=== PATIENT | female | born 1990 | race Two or more races ===

== ENCOUNTER 2022-03-07 08:48 | Emergency (ER) | payer OTHER ==
[~2022-03-07] VITALS: Ht 177.8 cm; Wt 68.0 kg
== END 2022-03-07 09:15 | disposition home or self-care (01) ==
LOC: ER 09:10
DX: K04.7 Periapical abscess without sinus (principal); K02.9 Dental caries, unspecified; F17.210 Nicotine dependence, cigarettes, uncomplicated
CPT/HCPCS: 99283

== ENCOUNTER 2022-07-03 19:16 | Emergency (ER) | payer OTHER ==
[~2022-07-03] VITALS: Ht 177.8 cm; Wt 68.0 kg
[2022-07-03] MEDS ORDERED: MELOXICAM7.5 MG PO (21:25)
== END 2022-07-03 21:42 | disposition home or self-care (01) ==
LOC: FSED 19:42
DX: S40.011A Contusion of right shoulder, initial encounter (principal); M25.511 Pain in right shoulder; W18.39XA Other fall on same level, initial encounter; Y92.89 Other specified places as the place of occurrence of the external cause
CPT/HCPCS: 99283